=== PATIENT | female | born 1970 | race Caucasian/White ===

== ENCOUNTER 2019-09-16 06:36 | Day surgery (SDC) | payer OTHER ==
[2019-09-13 08:42] VITALS: BP 125/78
[2019-09-13 09:21] LABS: BASOPHILS # (AUTO) 0.05 x10^3/uL (0-0.1); BASOPHILS % (AUTO) 1 % (0-1); EOSINOPHILS # (AUTO) 0.18 x10^3/uL (0-0.4); EOSINOPHILS % (AUTO) 2 % (1-7); LYMPHOCYTES # (AUTO) 2.41 x10^3/uL (1-3.4); LYMPHOCYTES % (AUTO) 30 % (22-44); MD NO; MEAN CORPUSCULAR HEMOGLOBIN 29.9 pg (27.0-34.8); MEAN CORPUSCULAR HGB CONC 33.2 g/dL (32.4-35.8); MEAN CORPUSCULAR VOLUME 90.1 fL (80-100); MEAN PLATELET VOLUME 7.7 fL (7.4-10.4); MONOCYTES # (AUTO) 0.48 x10^3/uL (0.2-0.8); MONOCYTES % (AUTO) 6 % (2-9); NEUTROPHILS # (AUTO) 4.95 x10^3/uL (1.8-6.8); NEUTROPHILS % (AUTO) 61 % (42-75); PLATELET COUNT 339 x10^3/uL (130-400); RED BLOOD COUNT 4.68 x10^6/uL (3.82-5.3); RED CELL DISTRIBUTION WIDTH 13.3 % (9.6-15.2)
[2019-09-13 09:22] LABS: HCG UR SG 1.018 (1.003-1.030)
[~2019-09-16] VITALS: Ht 170.2 cm; Wt 80.5 kg
[~2019-09-16 06:36] MED LIST: ASPI-515 PO/NG; ATOR40TA78 PO; OMEP20CA14 PO
[2019-09-16] MEDS ORDERED: ACETAMINOPHEN 500 MG TABLET PO ONE (07:00)
[2019-09-16] MEDS ORDERED: OxyconTIN ER 10 MG TAB.ER PO ONE (07:00)
[2019-09-16] MEDS ORDERED: ENOXAPARIN 30 MG/0.3 ML SQ ONE (07:00)
[2019-09-16] MEDS ORDERED: LACTATED RINGERS 1,000 ML IV SCH (07:03)
[2019-09-16 07:32] LABS: HCG UR SG 1.023 (1.003-1.030)
[2019-09-16] MEDS ORDERED: FENTANYL PF 100 MCG/2ML ONE (08:35)
[2019-09-16] MEDS ORDERED: MIDAZOLAM 1 MG/ML, 2ML ONE (08:35)
[2019-09-16] MEDS ORDERED: PROPOFOL 10 MG/ML, 20ML ONE (08:39)
[2019-09-16] MEDS ORDERED: ROCURONIUM 10MG/ML,5ML ONE (08:39)
[2019-09-16] MEDS ORDERED: DEXAMETHASONE 4 MG/ML, 1ML ONE ×2 (08:40)
[2019-09-16] MEDS ORDERED: CEFAZOLIN 1,000 MG ONE ×2 (08:40)
[2019-09-16] MEDS ORDERED: ONDANSETRON 2MG/ML, 2ML ONE (08:40)
[2019-09-16] MEDS ORDERED: EPINEPHRINE 1 MG/ML, 1ML ONE (08:58)
[2019-09-16] MEDS ORDERED: BUPIVACAINE/PF 0.25% ONE (08:58)
[2019-09-16] MEDS ORDERED: SUGAMMADEX 200 MG/2 ML IVPush ONE (10:04)
[2019-09-16] MEDS ORDERED: hydrALAzine 20 MG/ML, 1ML IV PRN (10:30)
[2019-09-16] MEDS ORDERED: HYDROmorphone 2 MG/ML, 1ML IVPush PRN (10:30)
[2019-09-16] MEDS ORDERED: ONDANSETRON 2MG/ML, 2ML IV PRN (10:30)
[2019-09-16] MEDS ORDERED: LORazepam 2 MG/ML, 1ML IVPush PRN (10:30)
[2019-09-16] MEDS ORDERED: DIPHENHYDRAMINE 50 MG/ML, 1ML IVPush PRN (10:30)
[2019-09-16] MEDS ORDERED: FENTANYL PF 100 MCG/2ML IV PRN (10:30)
[2019-09-16] MEDS ORDERED: LABETALOL 5MG/ML, 20ML IV PRN (10:30)
[2019-09-16] MEDS ORDERED: MEPERIDINE/PF 25MG/ML,1ML IVPush PRN (10:30)
[2019-09-16] MEDS ORDERED: OXYcodone 5 MG/5 ML ORAL.SOL UDC PO PRN (10:30)
== END 2019-09-16 12:35 | disposition home or self-care (01) ==
LOC: OUT 06:36
PROVIDERS: ATTEND Obstetrics & Gynecology
DX: N92.0 Excessive and frequent menstruation with regular cycle (principal); Z30.2 Encounter for sterilization; N83.8 Other noninflammatory disorders of ovary, fallopian tube and broad ligament; N73.6 Female pelvic peritoneal adhesions (postinfective); Z86.73 Personal history of transient ischemic attack (TIA), and cerebral infarction without residual deficits; Z80.3 Family history of malignant neoplasm of breast; Z82.3 Family history of stroke
CPT/HCPCS: 36415; 58563; 58670; 81025; 85025; 86850; 86900; 88302; 88305; 93005; J0171; J0690; J1100; J1650; J2250; J2405; J2704; J3010; J3490; J7120